=== PATIENT | female | born 1980 | race African-American/Black ===

== ENCOUNTER 2018-05-10 12:57 | Inpatient (IN) | payer SELFPAY ==
[~2018-05-10] VITALS: Ht 172.7 cm; Wt 117.9 kg
[2018-05-10 14:11] LABS: BASOPHILS % 0.4 % (0.0-2.0); EOSINOPHILS % 6.2 % (0.0-5.0); HEMATOCRIT. 40.2 % (36.0-48.0); HEMOGLOBIN. 13.4 g/dL (12.0-16.0); LYMPHOCYTES % 37.7 % (20.0-50.0); MEAN CORPUSCULAR HEMOGLOBIN 27.5 pg (28.0-32.0); MEAN CORPUSCULAR VOLUME 82.7 fL (81.0-99.0); MEAN PLATELET VOLUME 7.9 fl (7.4-10.4); MONOCYTES % 8.7 % (2.0-8.0); PLATELET 266 x1000/uL (130-400); RED BLOOD CELL COUNT 4.87 mill/uL (4.2-5.4); RED CELL DISTRIBUTION WIDTH 14.3 % (11.6-14.6)
[2018-05-10 14:18] LABS: CHLORIDE 103 mEq/L (98-107)
[2018-05-10 14:19] LABS: PROTHROMBIN TIME 10.6 sec (9.4-11.6)
[2018-05-10 15:55] LABS: HCG SCREEN NEGATIVE
[2018-05-10 16:13] LABS: CLARITY URINE CLEAR (CLEAR); COLOR URINE DARK YELLOW (YELLOW); KETONES URINE TRACE (NEGATIVE); LEUKOCYTE ESTERASE URINE NEGATIVE (NEGATIVE); NITRITE URINE NEGATIVE (NEGATIVE); OCCULT BLOOD URINE NEGATIVE (NEGATIVE); PROTEIN URINE TRACE (NEGATIVE); SPECIFIC GRAVITY URINE 1.024 (1.005-1.030); UROBILINOGEN URINE 0.2 E.U./dL (0.2-1.0)
[2018-05-10 16:28] LABS: *AMPHETAMINES SCREEN URINE NEGATIVE (NEGATIVE); *BARBITURATES SCREEN URINE NEGATIVE (NEGATIVE); *BENZODIAZEPINES SCREEN URINE NEGATIVE (NEGATIVE); *COCAINE SCREEN URINE NEGATIVE (NEGATIVE); METHADONE URINE SCREEN NEGATIVE (NEGATIVE)
[2018-05-10 16:29] LABS: CANNABINOID URINE SCREEN NEGATIVE (NEGATIVE); OPIATES URINE SCREEN NEGATIVE (NEGATIVE); PHENCYCLIDINE URINE SCREEN NEGATIVE (NEGATIVE)
[2018-05-10] MEDS ORDERED: ONDANSETRON HCL 4MG/2ML VIAL IV STA (18:39)
[2018-05-10] MEDS ORDERED: NITROGLYCERIN OINT 1GM/INCH UDPKT TD STA (18:39)
[2018-05-10] MEDS ORDERED: MORPHINE SULFATE 4 MG/ML CPJ (NOT FOR IM USE) IV STA (18:39)
[2018-05-10] MEDS ORDERED: ASPIRIN 81MG TABLET PO ONE (20:15)
[2018-05-10] MEDS ORDERED: IOHEXOL-350 100 ML BOTTLE ONE (20:22)
[2018-05-10] MEDS ORDERED: ACETAMINOPHEN 650MG/20.3ML UDC GT PRN (23:15)
[2018-05-10] MEDS ORDERED: MAGNESIUM/ALUMINUM HYDROXIDE/SIMETHICONE 30ML UDC PO PRN (23:15)
[2018-05-10] MEDS ORDERED: ACETAMINOPHEN 325MG TABLET PO PRN ×2 (23:15→23:45)
[2018-05-10] MEDS ORDERED: DIPHENHYDRAMINE 50MG/ML VIAL IV PRN (23:15)
[2018-05-10] MEDS ORDERED: CLONIDINE 0.1MG TABLET PO PRN (23:15)
[2018-05-10] MEDS ORDERED: NA PHOS,M-B/NA PHOS,DI-BA ENEMA 118ML PR PRN (23:15)
[2018-05-10] MEDS ORDERED: IPRATROPIUM/ALBUTEROL 0.5-3(2.5)MG/3ML NEB INH PRN (23:15)
[2018-05-10] MEDS ORDERED: ACETAMINOPHEN 650MG SUPP PR PRN (23:15)
[2018-05-10] MEDS ORDERED: ONDANSETRON HCL 4MG/2ML VIAL IV PRN (23:15)
[2018-05-10] MEDS ORDERED: DEXTROSE 50% WATER 50ML SYRINGE IV PRN (23:15)
[2018-05-10] MEDS ORDERED: HYDROCODONE/ACETAMINOPHEN 5/325MG TABLET PO PRN (23:15)
[2018-05-10 23:30] VITALS: BP 107/65
[2018-05-11] VITALS (8 sets, daily range): BP systolic 107–135; BP diastolic 53–71
[2018-05-11] MEDS: FAMOTIDINE 20MG/2ML VIAL IV SCH ×2 (00:14→09:55)
[2018-05-11] MEDS: KETOROLAC 30MG/ML VIAL IV PRN ×3 (00:21→13:22)
[2018-05-11] MEDS: ENOXAPARIN 30MG/0.3ML SYR SUBCUT SCH ×2 (00:23→09:55)
[2018-05-11] MEDS ORDERED: FAMO-135 PO (00:57)
[2018-05-11] MEDS ORDERED: ASPI-964 PO (00:57)
[2018-05-11] MEDS ORDERED: SUCR1TAB PO (00:57)
[2018-05-11] MEDS ORDERED: METF-815 PO (04:26)
[2018-05-11] MEDS: SODIUM CHLORIDE 0.9% INJ 3ML FLUSH IVF SCH ×2 (06:27→14:05)
[2018-05-11] MEDS: SUCRALFATE 1 G/10 ML UDC PO SCH ×4 (06:27→21:40)
[2018-05-11] MEDS: BLOOD SUGAR DIAGNOSTIC STRIP TEST SCH ×4 (06:48→21:37)
[2018-05-11 07:27] LABS: EOSINOPHILS % 6.6 % (0.0-5.0); HEMATOCRIT. 37.5 % (36.0-48.0); HEMOGLOBIN. 12.2 g/dL (12.0-16.0); LYMPHOCYTES % 38.8 % (20.0-50.0); MEAN CORPUSCULAR HEMOGLOBIN 27.2 pg (28.0-32.0); MEAN CORPUSCULAR VOLUME 83.2 fL (81.0-99.0); MEAN PLATELET VOLUME 8.2 fl (7.4-10.4); MONOCYTES % 12.4 % (2.0-8.0); NEUTROPHILS % 41.2 % (40.0-76.0); PLATELET 242 x1000/uL (130-400); RED BLOOD CELL COUNT 4.51 mill/uL (4.2-5.4); RED CELL DISTRIBUTION WIDTH 14.3 % (11.6-14.6)
[2018-05-11 07:31] LABS: CHLORIDE 105 mEq/L (98-107)
[2018-05-11] MEDS: INSULIN LISPRO 100 UNITS/ML SUBCUT SCH ×4 (07:50→21:38)
[2018-05-11 07:51] LABS: CREATINE KINASE 202 IU/L (26-192)
[2018-05-11 07:52] LABS: LDL CHOLESTEROL 76 mg/dL (5-100)
[2018-05-11 07:56] LABS: HDL CHOLESTEROL 31 mg/dL (40-59)
[2018-05-11 07:57] LABS: CREATINE KINASE MB FRACTION 1.6 ng/mL (0.5-3.6)
[2018-05-11] MEDS ORDERED: REGADENOSON 0.4 MG/5 ML IV ONE ×2 (11:00→13:45)
[2018-05-11 11:29] LABS: T4 FREE 0.85 ng/dL (0.76-1.46)
[2018-05-11 16:08] LABS: CREATINE KINASE 197 IU/L (26-192)
[2018-05-11 16:09] LABS: CREATINE KINASE MB FRACTION 1.4 ng/mL (0.5-3.6)
[2018-05-11] MEDS ORDERED: KETOROLAC 30MG/ML VIAL IV NR (19:00)
[2018-05-11 21:25] LABS: HCG SCREEN NEGATIVE
[2018-05-12] MEDS ORDERED: ASPIRIN 81MG TABLET PO SCH (09:00)
== END 2018-05-11 22:32 | disposition home or self-care (01) | DRG 203 ==
LOC: ER 12:57 → EDBEDREQ 19:10 → ENRESERV 20:15 → 6WST 20:15
PROVIDERS: ADMIT Family Medicine; ATTEND Family Medicine
DX: R07.9 Chest pain, unspecified (principal); I10 Essential (primary) hypertension; E11.9 Type 2 diabetes mellitus without complications; E66.9 Obesity, unspecified; F17.200 Nicotine dependence, unspecified, uncomplicated; J45.909 Unspecified asthma, uncomplicated; K21.9 Gastro-esophageal reflux disease without esophagitis; Z96.659 Presence of unspecified artificial knee joint; Z60.2 Problems related to living alone; Z79.899 Other long term (current) drug therapy; Z98.891 History of uterine scar from previous surgery; Z79.82 Long term (current) use of aspirin; Z68.39 Body mass index [BMI] 39.0-39.9, adult
CPT/HCPCS: 36415; 71045; 71275; 72125; 78452; 80053; 80061; 80305; 81003; 82550; 82553; 82962; 83036; 83690; 83880; 84439; 84443; 84484; 84703; 85025; 85379; 85610; 93005; 93017; 93306; 93970; 96374; 96375; 99291; A9500; J1650; J1815; J1885; J2270; J2405; J2785; J3490; Q9967